=== PATIENT | female | born 1935 | race Caucasian/White ===

== ENCOUNTER → 2017-05-12 | Outpatient (CLI) | payer OTHER | LOC: CIMAGING 08:01 | PROVIDERS: ATTEND Internal Medicine | DX: Z12.31 Encounter for screening mammogram for malignant neoplasm of breast (principal) | CPT/HCPCS: G0202 ==

== ENCOUNTER → 2018-04-20 | Outpatient (CLI) | payer OTHER | LOC: BRMIMAGING 08:52 | PROVIDERS: ATTEND Internal Medicine | DX: N60.01 Solitary cyst of right breast (principal) | CPT/HCPCS: 76641-PO ==